=== PATIENT | female | born 1985 | race Caucasian/White ===

== ENCOUNTER 2017-02-03 08:27 | Day surgery (SDC) | payer OTHER ==
[2017-02-03] VITALS (12 sets, daily range): BP systolic 97–119; BP diastolic 55–73; PULSE 61–89; RESP 14–25; Ht 162.6 cm; Wt 94.5 kg
[~2017-02-03] VITALS: Ht 162.6 cm; Wt 94.5 kg
[2017-02-03] MEDS ORDERED: ROCURONIUM 50 MG INJ ONE (09:24)
[2017-02-03] MEDS ORDERED: SUCCINYLCHOLINE CHLORIDE 100 MG/5 ML SYG IV ONE (09:24)
[2017-02-03] MEDS ORDERED: LIDOCAINE 2% (SDV) 5 ML INJ ONE (09:24)
[2017-02-03] MEDS ORDERED: PROPOFOL 20 ML ONE (09:24)
[2017-02-03] MEDS ORDERED: GLYCOPYRROLATE 0.4 MG INJ ONE ×3 (09:24→12:25)
[2017-02-03] MEDS ORDERED: NEOSTIGMINE 3 MG/3 ML SYRINGE ONE ×2 (09:24→12:25)
[2017-02-03] MEDS ORDERED: MEPERIDINE 100 MG INJ ONE (09:25)
[2017-02-03] MEDS ORDERED: ONDANSETRON 4 MG INJ ONE (09:27)
[2017-02-03] MEDS ORDERED: METOCLOPRAMIDE 10 MG INJ ONE (09:27)
[2017-02-03] MEDS ORDERED: CEFAZOLIN 1 GM INJ ONE (09:27)
[2017-02-03] MEDS ORDERED: CEFAZOLIN 2 GM/50 ML (PMX) 50 ML IVPB SCH (09:30)
[2017-02-03] MEDS ORDERED: LACTATED RINGER'S 1,000 ML IV* SCH (09:30)
--- NOTE | 2017-02-03 09:47 | HPN ---
Date/Time of Note Date/Time of Note DATE: 02/03/17 TIME: 09:47 Interval H&P Admission Note Pt. seen H&P reviewed: No system changes ALAN LEÓN MD Feb 03, 2017 09:47
[2017-02-03] MEDS ORDERED: BUPIVACAINE 0.5%/EPI (SDV) 30 ML INJ ONE (09:58)
[2017-02-03] MEDS ORDERED: THROMBIN 5000 UNIT VIAL ONE ×2 (09:58→12:22)
[2017-02-03] MEDS ORDERED: POLYMYXIN/BACITRACIN 1L IRRIG ONE (09:58)
[2017-02-03] MEDS ORDERED: BETAMET NA PHOS/AC(6 MG/ML) 5ML INJ ONE (09:59)
[2017-02-03] MEDS ORDERED: HEMOSTATIC MATRIX SYG ZFS ONE (11:10)
[2017-02-03] MEDS ORDERED: OXYCODONE/ACETAMINOPHEN (5/325) TAB PO PRN ×2 (12:30)
[2017-02-03] MEDS ORDERED: FENTAnyl 50 MCG/ML VIAL IV PRN ×3 (12:30)
[2017-02-03] MEDS ORDERED: METOCLOPRAMIDE 10 MG INJ IV PRN (12:30)
[2017-02-03] MEDS ORDERED: LABETALOL HCL 20MG INJ IV PRN (12:30)
[2017-02-03] MEDS ORDERED: DIPHENHYDRAMINE 50 MG INJ IV PRN (12:30)
[2017-02-03] MEDS ORDERED: MIDAZOLAM 1 MG/ML 2 ML INJ IV PRN (12:30)
[2017-02-03] MEDS ORDERED: EPHEDrine SULFATE 50 MG/5 ML SYG IV PRN (12:30)
[2017-02-03] MEDS ORDERED: HYDROmorphONE (0.2 MG/ML) 10ML SYG IV PRN ×3 (12:30)
[2017-02-03] MEDS ORDERED: hydrALAzine 20 MG INJ IV PRN (12:30)
[2017-02-03] MEDS ORDERED: MEPERIDINE 25 MG INJ IV PRN (12:30)
[2017-02-03] MEDS ORDERED: ONDANSETRON 4 MG INJ IV PRN (12:30)
--- NOTE | 2017-02-03 13:06 | OPR ---
Date/Time of Note Date/Time of Note DATE: 02/03/17 TIME: 13:01 Operative Report Free Text/Dictation DATE OF OPERATION: 02/03/2017 PREOPERATIVE DIAGNOSES: Right sided L4-L5 disk herniation with L5 radiculopathy POSTOPERATIVE DIAGNOSES: Right sided L4-L5 disk herniation with L5 radiculopathy OPERATION PERFORMED: Right L4-L5 microdiscectomy SURGEON: Alan León MD OVER[employer] GAR[employer] DOOR HANGER: RAIZA Shook ANESTHESIA: General endotracheal ESTIMATED BLOOD LOSS: 15 mL SURGICAL INDICATION: The patient is a 31 year-old female who presents with a history of right lower extremity pain and weakness. She was found to have a disc herniation which correlated well with her symptoms. The patient had failed conservative treatment and had a progressive neurological deficit. Risks, benefits, and alternatives to microdiscectomy were explained to the patient and they wished to proceed. Risks explained included but were not exclusive of bleeding, infection, cauda equina syndrome, nerve injury, dural tear, iatrogenic instability, recurrent disc herniation, fracture, vascular injury, bowel injury, stroke, heart attack and pulmonary embolism. DESCRIPTION OF TECHNIQUE: The patient was identified in the preoperative area and taken to the operating room. Rapid induction of general endotracheal anesthesia was performed. The patient was given 2 g of cefazolin for prophylaxis. The patient was then placed in the prone position on the Luis frame on a Roel flat top table with all prominences well padded. The back was prepped and draped in the usual sterile manner. Using a spinal needle and intraoperative fluoroscopy, the appropriate level was clearly identified (L4-L5) . The skin was injected using 0.5% Marcaine with epinephrine. Longitudinal midline incision was then created using a 10 blade. Further dissection through soft tissue was performed using electrocautery down to the spinous processes. The dissection was taken down the right side of the lamina and over the facet joint capsule. A self-retaining retractor was applied. Again, intraoperative fluoroscopy confirmed the appropriate level (L4-5). The microscope was brought into use for microdissection. A small portion of the caudal aspect of the cephalad L4 lamina and medial facet was resected using a high-speed bur. A series of Kerrison rongeurs were then used to resect the ligamentum flavum and a small portion of the right superior L5 laminae given the distal location of the herniated fragment. The dura and traversing nerve root were both directly visualized. These were retracted gently in a medial direction. Immediately, the extruded disc fragment was noted. The pseudo anulus was incised using an 11 blade. Several loose fragments of disk were removed. These were removed back to a stable portion of the disk. The disk space was further pressurized using a using normal saline through a syringe to ensure that no loose fragments remained behind. Palpation with a ball-tip probe did not reveal any further stenosis. The traversing L5 nerve root was noted to be significantly decompressed. Meticulous attention was paid towards hemostasis using FloSeal as well as Gelfoam and thrombin. Care was taken to remove all FloSeal and Gelfoam prior to wound closure. The fascia was then closed using 1 Vicryl in an interrupted fashion. Subcutaneous tissue was closed using 2-0 Vicryl in an interrupted fashion. The skin was closed using a running 4-0 Monocryl stitch. The wound was dressed using Dermabond and a 4x4 sterile gauze. The patient was returned to the supine position. He was extubated immediately postoperatively and taken to the recovery room in stable condition. COMPLICATIONS: None. Preoperative Diagnosis Right sided L4-L5 disk herniation with L5 radiculopathy Postoperative Diagnosis Right sided L4-L5 disk herniation with L5 radiculopathy Operation/Procedure Performed Right L4-L5 microdiscectomy Surgeon see signature line Player Services Representative CHRISTIAN Shook Anesthesia Type: general Estimated Blood Loss: 10 - 50 ml's Transfusion none Specimen Right L4-5 disk Grafts/Implants none Complications none Pt Condition Post Procedure: stable Disposition: PACU Procedure Description DESCRIPTION OF TECHNIQUE: The patient was identified in the preoperative area and taken to the operating room. Rapid induction of general endotracheal anesthesia was performed. The patient was given 2 g of cefazolin for prophylaxis. The patient was then placed in the prone position on the Luis frame on a Roel flat top table with all prominences well padded. The back was prepped and draped in the usual sterile manner. Using a spinal needle and intraoperative fluoroscopy, the appropriate level was clearly identified (L4-L5) . The skin was injected using 0.5% Marcaine with epinephrine. Longitudinal midline incision was then created using a 10 blade. Further dissection through soft tissue was performed using electrocautery down to the spinous processes. The dissection was taken down the right side of the lamina and over the facet joint capsule. A self-retaining retractor was applied. Again, intraoperative fluoroscopy confirmed the appropriate level (L4-5). The microscope was brought into use for microdissection. A small portion of the caudal aspect of the cephalad L4 lamina and medial facet was resected using a high-speed bur. A series of Kerrison rongeurs were then used to resect the ligamentum flavum and a small portion of the right superior L5 laminae given the distal location of the herniated fragment. The dura and traversing nerve root were both directly visualized. These were retracted gently in a medial direction. Immediately, the extruded disc fragment was noted. The pseudo anulus was incised using an 11 blade. Several loose fragments of disk were removed. These were removed back to a stable portion of the disk. The disk space was further pressurized using a using normal saline through a syringe to ensure that no loose fragments remained behind. Palpation with a ball-tip probe did not reveal any further stenosis. The traversing L5 nerve root was noted to be significantly decompressed. Meticulous attention was paid towards hemostasis using FloSeal as well as Gelfoam and thrombin. Care was taken to remove all FloSeal and Gelfoam prior to wound closure. The fascia was then closed using 1 Vicryl in an interrupted fashion. Subcutaneous tissue was closed using 2-0 Vicryl in an interrupted fashion. The skin was closed using a running 4-0 Monocryl stitch. The wound was dressed using Dermabond and a 4x4 sterile gauze. The patient was returned to the supine position. He was extubated immediately postoperatively and taken to the recovery room in stable condition. ALAN LEÓN MD Feb 03, 2017 13:06
--- NOTE | 2017-02-03 13:07 | PDOCDIS ---
Discharge Instructions DIAGNOSIS Discharge Diagnosis Right L4-5 Herniated Disk CONDITION Patient Condition: Good HOME CARE INSTRUCTIONS: Diet Instructions: Regular ACTIVITY: Activity Restrictions: Avoid heavy lifting Bathing Restrictions: Shower FOLLOW UP/APPOINTMENTS Follow-up Plan Follow-up with Dr. León in 2 weeks ALAN LEÓN MD Feb 03, 2017 13:07
[2017-02-03] MEDS ORDERED: HYDROCODONE/APAP (5/325) TAB PO PRN ×2 (13:30)
[2017-02-03] MEDS ORDERED: ACETAMINOPHEN 325 MG TAB PO PRN (13:30)
[2017-02-03] MEDS ORDERED: NALOXONE (0.4 MG/ML) INJ IV PRN (13:30)
[2017-02-03] MEDS ORDERED: NACL 0.9% 3 ML SYG IV SCH (13:30)
--- NOTE | 2017-02-03 15:18 | RADRPT ---
PROCEDURE: Intraoperative imaging of the lumbar spine with fluoroscopy. CLINICAL INDICATION: Back pain. Intraoperative. TECHNIQUE: 3 images of the lumbar spine were obtained in the operating room with an image intensif ier. No radiologist was in attendance. Fluoroscopy time is 8.7 seconds. COMPARISON: No prior study is available for comparison. FINDINGS: For the purposes of this report, the last apparent true disc level is considered to be L5-S1. Based on this, the posterior surgical instrument is present overlying the L4-5 level. IMPRESSION: 1. Intraoperative imaging of the lumbar spine. RPTAT: QQ .Stef Nascimento MD, MD Date Time Electronically viewed and signed by .Stef Nascimento MD, on 02/03/2017 15:18 .R/
[2017-02-03] MEDS ORDERED: CEFAZOLIN 1 GM/50 ML (PMX) 50 ML IVPB SCH (18:00)
== END 2017-02-03 15:00 | disposition home or self-care (01) ==
LOC: REC 08:27 → UNDOADMIN 08:27 → SDS 08:27 → EDSTATUS 11:30 → SDS 15:00 → UNDODISIN 15:00
PROVIDERS: ATTEND Orthopaedic Surgery
DX: M51.16 Intervertebral disc disorders with radiculopathy, lumbar region (principal); J45.909 Unspecified asthma, uncomplicated; E66.9 Obesity, unspecified; M54.5 Low back pain
CPT/HCPCS: 63030; 72100; 84703; 88304; 97161; J0690; J0702; J2175; J2405; J2710; J2765; Z7512; Z7610; J1170